=== PATIENT | male | born 1960 | race Caucasian/White ===

== ENCOUNTER 2021-07-07 14:04 | Outpatient (REF) | payer MEDICARE, MEDICAID, SELFPAY ==
--- NOTE | ~2021-07-07 | MR_ITS ---
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 COMPARISON: Brain MRI 03/01/2018. TECHNIQUE: Multiplanar, multisequence imaging of the brain was performed without intravenous contrast. FINDINGS: There is no acute infarct, hemorrhage, mass, or extra-axial fluid collection. 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 There is unchanged abutment of the tectal plate. A few minimal nonspecific foci of T2/FLAIR hyperintensity are seen within the white matter. There is no evidence of chronic microangiopathy. The ventricles are normal in size without hydrocephalus. The cerebellar tonsils are normally positioned above the foramen magnum. The major arterial flow voids are preserved at the skull base. The extracranial structures are within normal limits. There is minimal paranasal sinus mucosal thickening. The mastoids are clear. MR/MR head/brain wo con IMPRESSION: No acute infarct, mass lesion, intracranial hemorrhage, or evidence of hydrocephalus. 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
== END 2021-07-07 14:05 | disposition home or self-care (01) ==
LOC: HO.MRI 14:04
PROVIDERS: PCP Family Medicine; Visit Provider Psychiatry & Neurology Neurology
DX: G23.1 Progressive supranuclear ophthalmoplegia [Steele-Richardson-Olszewski] (principal)
CPT/HCPCS: 70551

== ENCOUNTER 2022-03-21 10:53 | Outpatient (REF) | payer MEDICARE, MEDICAID, SELFPAY ==
[2022-03-21 11:54] LABS: Anion Gap 15 (12-20); Carbon Dioxide 27 mmol/L (22-29); Chloride 102 mmol/L (96-108); Potassium 4.8 mmol/L (3.3-5.1); Sodium 139 mmol/L (135-145)
[2022-03-21 12:20] LABS: T4 Thyroxine 7.4 ug/dL (4.5-12.0)
[2022-03-28 16:56] LABS: Acetylcholine Recep Modulating <1
[2022-03-29 13:06] LABS: Acetylcholine Recept. Blocking <15 (<15)
[2022-03-29 18:42] LABS: Acetylcholine Receptor Binding <0.30 nmol/L
== END 2022-03-21 10:54 | disposition home or self-care (01) ==
LOC: HO.LAB 10:53
PROVIDERS: PCP Family Medicine; Visit Provider Psychiatry & Neurology Neurology
DX: G23.1 Progressive supranuclear ophthalmoplegia [Steele-Richardson-Olszewski] (principal)
CPT/HCPCS: 36415; 80051; 82550; 83519; 84436; 84443